=== PATIENT | female | born 1940 | race Caucasian/White ===

== ENCOUNTER 2021-01-08 07:42 | Emergency (ER) | payer MEDICARE ==
[2021-01-08 08:54] LABS: BASOPHIL 0.8 % (0-2); EOSINOPHIL 0.8 % (0-7); HCT 36.6 % (37.0-47.0); HGB 12.2 g/dl (12.5-16.0); LYMPHOCYTE 42.1 % (15-48); MCH 30.9 pg (25.0-31.0); MCHC 33.3 g/dL (32.0-36.0); MCV 92.7 fL (78.0-100.0); MONOCYTE 8.2 % (0-12); MPV 11.2 fL (6.0-9.5); NEUTROPHIL 47.8 % (41-80); NRBC 0; PLT 233 K/uL (150-400); RBC 3.95 M/uL (4.20-5.40); RDW 12.8 % (11.5-14.0); WBC 6.1 K/uL (4.0-10.5)
[2021-01-08 09:10] LABS: BILIRUBIN - TOTAL 0.5 mg/dL (0.2-1.0); BUN/CREAT RATIO (CALC) 12.3 RATIO; CREATININE 0.81 mg/dL (0.51-0.95); GLOBULIN (CALCULATION) 3.8 g/dL; POTASSIUM 4.1 mmol/L (3.5-5.1); TOTAL PROTEIN 7.8 g/dL (6.4-8.2)
[2021-01-08 09:39] LABS: LACTIC ACID 1.2 mmol/L (0.4-1.9)
[2021-01-08 09:46] LABS: INR 1.03 (0.9-1.2); PROTHROMBIN TIME 12.8 SECONDS (11.4-13.6)
[2021-01-08 09:57] LABS: BILIRUBIN NEGATIVE (NEGATIVE); BLOOD NEGATIVE Ery/uL (NEGATIVE); CLARITY CLEAR (CLEAR); COLOR YELLOW (YELLOW); GLUCOSE (U) NORMAL (NORMAL); LEUKOCYTES 1+ Leu/uL (NEGATIVE); NITRITE NEGATIVE (NEGATIVE); PROTEIN NEGATIVE (NEGATIVE); SPECIFIC GRAVITY 1.015 (1.001-1.030); UROBILINOGEN 0.2 mg/dL (0.2-1.0)
[2021-01-08 10:16] LABS: BACTERIA 2+; URINARY RBC RARE
== END 2021-01-08 12:38 | disposition home or self-care (01) ==
LOC: FER 07:42
PROVIDERS: Emergency Medicine
DX: R10.11 Right upper quadrant pain (principal); I10 Essential (primary) hypertension
CPT/HCPCS: 36415; 71275; 76705; 80053; 81001; 82550; 83605; 83690; 83735; 84145; 84484; 85025; 85379; 85610; 85730; 93005; J7030; Q9967